=== PATIENT | male | born 1990 | race Hispanic/Latino ===

== ENCOUNTER 2021-02-25 09:50 | Emergency (ER) | payer SELFPAY ==
--- OUTSIDE RECORDS SUMMARY | 2021-02-25 09:52 | XMS REPORT | Continuity of Care Document ---
:1990 Author Organization [facility] t Address [address] [place] [address] Care Team Providers Name Role Phone Unavailable Unavailable Unavailable Payers Payer Name Policy Type Policy Number Effective Date Expiration Date S ource Problems This patient has no known problems. Allergies, Adverse Reactions, Alerts Allergy Allergy Status Severity Reaction(s) Onset Inactive Treating Comm ents Source Name Type Date Date Clinician No Known DA Active U 2019-0 [facility] 4[facility]14 [facility] No Known DA Active U 2016-0 [facility] 6[facility] Medications This patient has no known medications. Procedures This patient has no known procedures. Results Test Description Test Time Test Comments Results Result [facility] e Comments - XR RIBS UNI 2 V 2020-01-02 FAX: LT 09:59:00 Dimitris Gallo [place]: [facility] St: DEP Name: HORACIO LOVE JR [place] : 1990 Age/S: 29/M [address] [address] Unit #: [id number] [place]: [place] [address] Phys: Dimitris Gallo MD Acct: [id number] Dis Date: Status: DEP ER PHONE #: [phone] Exam Date: 12/19/2019 1530 FAX #: Reason: left rib pain EXAMS: CPT CODE: [id number] XR RIBS UNI 2 [place] [address] Location of dictation: B2 Chest 2 views and left RIBS 3 views. HISTORY:left rib pain COMMENT: No comparison. The lungs are clear and normally expanded. The heart and pulmonary vasculature is normal. Soft tissues and skeletal structures are unremarkable. The left ribs are intact with no acute fracture or dislocation, focal lesion or destructive process. No paraspinal widening noted. IMPRESSION: 1. No active disease the chest. 2. Unremarkable left ribs. at 0959 Reported and signed by: HARLEY MATRIN M.D. CC: Dimitris Gallo MD Technologist: Evelia Foster (R) Trnscrd Date/Time/By: 01/02/2020 (0959) : By: HieuPXC Orig Print D/T: S: 01/02/2020 (1002) PAGE 1 Signed Report - XR CHEST 2 V 2019-12-19 FAX: 15:35:00 Dimitris Gallo [place]: [facility] St: REG Name: HORACIO LOVE [facility] : 1990 Age/S: 29/M [address] [address] Unit #: [id number] Loc: [place] [address] Phys: Dimitris Gallo MD Acct: [id number] Dis Date: Status: REG ER PHONE #: [phone] Exam Date: 12/19/2019 1530 FAX #: Reason: left rib pain EXAMS: CPT CODE: [id number] XR CHEST 2 V 03054 Location of dictation: B2 Chest 2 views and left RIBS 3 views. HISTORY:left rib pain COMMENT: No comparison. The lungs are clear and normally expanded. The heart and pulmonary vasculature is normal. Soft tissues and skeletal structures are unremarkable. The left ribs are intact with no acute fracture or dislocation, focal lesion or destructive process. No paraspinal widening noted. IMPRESSION: 1. No active disease the chest. 2. Unremarkable left ribs. at 1535 Reported and signed by: HARLEY MARTIN M.D. CC: Dimitris Gallo MD Technologist: Evelia Foster (R) Trnscrd Date/Time/By: 12/19/2019 (1530) : By: SharriC Orig Print D/T: S: 12/19/2019 (1472) PAGE 1 Signed Report
[2021-02-25 10:15] LABS: Absolute Lymphocytes (CBC) 1.3 K/uL (0.7-4.9); Basophils % 0.3 % (0-1.3); Hematocrit 42.4 % (39.6-49.0); Lymphocytes % 18.4 % (15.3-44.8); MPV 10.1 fL (7.6-11.3); RBC Red Blood Cell Count 4.72 M/uL (4.33-5.43)
[2021-02-25 10:26] LABS: Protime INR 1.1
--- NOTE | 2021-02-25 10:26 | RAD REPORT ---
EXAM DESCRIPTION: CT - Head Brain Wo Cont - 02/25/2021 10:13 am CLINICAL HISTORY: Syncope COMPARISON: None. TECHNIQUE: Computed axial tomography of the head was obtained. IV contrast was not requested. All CT scans are performed using dose optimization technique as appropriate and may include automated exposure control or mA/KV adjustment according to patient size. FINDINGS: An intracranial bleed is not seen . The ventricles are normal in caliber. No extra-axial fluid collection is noted. Fluid within the sinuses/ mastoids is not seen. IMPRESSION: No acute intracranial abnormality is seen. If patient's symptoms persist MRI of the bra in would be recommended.
[2021-02-25 10:34] LABS: ALT/SGPT 24 U/L (12-78); AST/SGOT 14 U/L (15-37); Albumin 3.7 g/dL (3.4-5.0); Alkaline Phosphatase 104 U/L (45-117); BUN Blood Urea Nitrogen 14 mg/dL (7-18); Bicarbonate 28 mmol/L (21-32); Bilirubin Direct 0.2 mg/dL (0-0.2); Bilirubin Total 0.7 mg/dL (0.2-1.0); Glucose Level 95 mg/dL (74-106); Magnesium 2.1 mg/dL (1.8-2.4); NT PRO-BNP 16 pg/mL (<125); Potassium 3.7 mmol/L (3.5-5.1); Protein, Total 6.7 g/dL (6.4-8.2); Sodium Level 140 mmol/L (136-145); Troponin (Emerg Dept Use Only) < 0.02 ng/mL (0.0-0.045)
[2021-02-25] MEDS ORDERED: Ringers Lactate 1,000 ML IV ONE (10:34)
--- NOTE | 2021-02-25 10:41 | RAD REPORT ---
EXAM DESCRIPTION: Immanuel Single View02/25/2021 10:23 am CLINICAL HISTORY: Syncope COMPARISON: none FINDINGS: The lungs appear clear of acute infiltrate. The heart is normal size IMPRESSION: No acute abnormalities displayed
--- NOTE | 2021-02-25 12:07 | ER ---
Nurse's Notes [facility] Name: Oscar Melton Jr Age: 30 yrs Sex: Male : 1990 Arrival Date: 02/25/2021 Time: 09:57 Bed 19 [facility] MD: Diagnosis: Syncope and collapse Presentation: 02/25 09:58 Chief complaint: Patient states: Pt stated, "I came in from outside at work and then I kg sat down and passed out and hit my head on the door.". Coronavirus screen: Client denies travel out of the [place] in the last 14 days. At this time, unable to obtain information related to travel outside the [place] At this time, the client does not indicate any symptoms associated with coronavirus-19. Ebola Screen: Patient negative for fever greater than or equal to 101.5 degrees Fahrenheit, and additional compatible Ebola Virus Disease symptoms Patient denies exposure to infectious person. Patient denies travel to an Ebola-affected area in the 21 days before illness onset. Initial Sepsis Screen: Does the patient meet any 2 criteria? No. Patient's initial sepsis screen is negative. Does the patient have a suspected source of infection? No. Patient's initial sepsis screen is negative. Risk Assessment: Do you want to hurt yourself or someone else? Patient reports no desire to harm self or others. Onset of symptoms was February 25, 2021 at 09:00. 09:58 Method Of Arrival: EMS: [facility] kg 09:58 Acuity: JUSTINA 3 kg Historical: - Allergies: 10:01 No Known Allergies; kg - PMHx: 10:01 None; kg - PSHx: 10:01 None; kg - Immunization history:: Adult Immunizations not up to date. - Social history:: Smoking status: Patient denies any tobacco usage or history of. Screenin:04 Abuse screen: Denies threats or abuse. Denies injuries from another. Nutritional kg screening: No deficits noted. Tuberculosis screening: No symptoms or risk factors identified. Fall Risk None identified. Fall in past 12 months (25 points). No secondary diagnosis (0 pts). IV access (20 points). Ambulatory Aid- None/Bed Rest/Nurse Assist (0 pts). Gait- Normal/Bed Rest/Wheelchair (0 pts) Mental Status- Oriented to own ability (0 pts). Total Jaquez Fall Scale indicates No Risk (0-24 pts). Assessment: 10:01 General: Appears in no apparent distress. Behavior is calm, cooperative, appropriate kg for age, quiet. Pain: Denies pain. Neuro: Level of Consciousness is awake, alert, obeys commands, Oriented to person, place, time, situation, Appropriate for age Reports Numbness on the tounge. Cardiovascular: No deficits noted. Heart tones S1 S2 Capillary refill < 3 seconds Pulses are 4+ in right radial artery and left radial artery Rhythm is regular. Respiratory: No deficits noted. Airway is patent Respiratory effort is even, unlabored, relaxed, Respiratory pattern is regular, symmetrical, Breath sounds are clear bilaterally. GI: Reports vomiting, Pt stated, " I stopped to get gas this morning at 05:45 and got nauseated and threw up.". : No deficits noted. EENT: No deficits noted. Derm: No deficits noted. Vital Signs: 09:58 BP 118 / 71; Pulse 65; Resp 20; Temp 97.5(TE); Pulse Ox 100% on R/A; kg 09:58 Weight 90.72 kg (R); Height 5 ft. 7 in. (170.18 cm); Pain 0/10; kg 10:17 BP 109 / 66 Supine; Pulse 59; Resp 16; Pulse Ox 100% on R/A; mh5 10:19 BP 119 / 76 Sitting; Pulse 59; Resp 12; Pulse Ox 100% on R/A; mh5 10:21 BP 117 / 77 Standing; Pulse 59; Resp 17; Pulse Ox 97% on R/A; mh5 10:30 BP 107 / 70; Pulse 60; Resp 20; Pulse Ox 100% on R/A; kg 11:00 BP 115 / 77; Pulse 54; Resp 20; Pulse Ox 99% ; kg 11:30 BP 114 / 78; Pulse 49; Resp 20; Pulse Ox 99% on R/A; kg 12:00 BP 116 / 60; Pulse 53; Resp 20; Pulse Ox 100% on R/A; kg 09:58 Body Mass Index 31.32 (90.72 kg, 170.18 cm) kg ED Course: 09:57 Patient arrived in ED. jr8 09:57 Berna Cortez, RN is Primary Nurse. kg 09:57 Hayder Leal PA is PHCP. jr8 09:57 Murray Barajas MD is Attending Physician. jr8 10:00 Triage completed. kg 10:04 Maintain EMS IV. Dressing intact. Good blood return noted. Site clean \\T\\ dry. Gauge \\T\\ kg site: 20 G double lumen IV to right AC. 10:07 Arm band placed on left wrist. kg 10:07 Patient has correct armband on for positive identification. Placed in gown. Bed in low kg position. Call light in reach. Side rails up X2. 10:10 CBC with Diff Sent. mh5 10:10 LFT's Sent. 5 10:10 Magnesium Sent. 5 10:10 NT PRO-BNP Sent. 5 10:10 PT-INR Sent. 5 10:10 Troponin (emerg Dept Use Only) Sent. 5 10:11 Basic Metabolic Panel Sent. 5 10:23 XRAY Chest (1 view) Sent. kg 10:23 CT Head Brain wo Cont Sent. kg 12:05 Riley Vaughan MD is Referral Physician. jr8 12:06 Eran Felix MD is Referral Physician. jr8 12:12 IV discontinued, intact, bleeding controlled, No redness/swelling at site. Pressure kg dressing applied. 12:21 No provider procedures requiring assistance completed. kg Administered Medications: 10:23 Drug: Ringers - Lactated Ringers Solution 1000 ml Route: IV; Rate: bolus; Site: right kg antecubital; 11:34 Follow up: IV Status: Completed infusion; IV Intake: 1000ml kg 11:34 Follow up: Response: No adverse reaction kg Intake: 11:34 IV: 1000ml; Total: 1000ml. kg Outcome: 12:06 Discharge ordered by . jr8 12:21 Discharged to home ambulatory. kg 12:21 Condition: good 12:21 Discharge instructions given to patient, Instructed on discharge instructions, follow up and referral plans. Demonstrated understanding of instructions, follow-up care. 12:22 Patient left the ED. kg Signatures: Hayder Leal PA PA jr8 Cayla Love [facility] Berna Cortez, RN RN kg
--- NOTE | 2021-02-25 12:07 | EDPHYS ---
Physician Documentation [facility] Name: Oscar Melton Jr Age: 30 yrs Sex: Male : 1990 Arrival Date: 02/25/2021 Time: 09:57 Bed 19 Private MD: ED Physician Murray Barajas HPI: 02/25 10:01 This 30 yrs old Male presents to ER via EMS with complaints of Syncope. jr8 10:01 The patient has experienced syncope, became unresponsive. Onset: The symptoms/episode jr8 began/occurred acutely, today. Duration: This was a single episode. Context: the episode(s) was witnessed, by co-worker(s), occurred at work, occurred while the patient was sitting, Just prior to the episode the patient experienced lightheadedness. Associated injury: The patient did not suffer any apparent associated injury. Associated signs and symptoms: Pertinent positives: tingling. Current symptoms: tingling to tongue. The patient has not experienced similar symptoms in the past. The patient has not recently seen a physician. Patient stated that he was sitting in class today and started to feel lightheaded and have tingling sensation to entire tongue. Shortly after passed out. EMS called at that time. Patient A\T\O x4 upon arrival and feels back to normal other then having some slight tingling to tongue still. Stated that he has been doing more pre-work out drinks when he goes to the gym but feels that he is taking adequate water intake and denies any other supplements or recreational drug use. Denies having similar symptoms in past . Historical: - Allergies: 10:01 No Known Allergies; kg - PMHx: 10:01 None; kg - PSHx: 10:01 None; kg - Immunization history:: Adult Immunizations not up to date. - Social history:: Smoking status: Patient denies any tobacco usage or history of. ROS: 10:01 Eyes: Negative for injury, pain, redness, and discharge, ENT: Negative for injury, jr8 pain, and discharge, Neck: Negative for injury, pain, and swelling, Cardiovascular: Negative for chest pain, palpitations, and edema, Respiratory: Negative for shortness of breath, cough, wheezing, and pleuritic chest pain, Abdomen/GI: Negative for abdominal pain, nausea, vomiting, diarrhea, and constipation, Back: Negative for injury and pain, MS/Extremity: Negative for injury and deformity, Skin: Negative for injury, rash, and discoloration. 10:01 Neuro: Positive for dizziness, syncope, tingling. Exam: 10:01 Constitutional: This is a well developed, well nourished patient who is awake, alert, jr8 and in no acute distress. Head/Face: Normocephalic, atraumatic. Eyes: Pupils equal round and reactive to light, extra-ocular motions intact. Lids and lashes normal. Conjunctiva and sclera are non-icteric and not injected. Cornea within normal limits. Periorbital areas with no swelling, redness, or edema. ENT: Nares patent. No nasal discharge, no septal abnormalities noted. Tympanic membranes are normal and external auditory canals are clear. Oropharynx with no redness, swelling, or masses, exudates, or evidence of obstruction, uvula midline. Mucous membranes moist. Neck: Trachea midline, no thyromegaly or masses palpated, and no cervical lymphadenopathy. Supple, full range of motion without nuchal rigidity, or vertebral point tenderness. No Meningismus. Cardiovascular: Regular rate and rhythm with a normal S1 and S2. No gallops, murmurs, or rubs. Normal PMI, no JVD. No pulse deficits. Respiratory: Lungs have equal breath sounds bilaterally, clear to auscultation and percussion. No rales, rhonchi or wheezes noted. No increased work of breathing, no retractions or nasal flaring. Abdomen/GI: Soft, non-tender, with normal bowel sounds. No distension or tympany. No guarding or rebound. No evidence of tenderness throughout. Back: No spinal tenderness. No costovertebral tenderness. Full range of motion. Skin: Warm, dry with normal turgor. Normal color with no rashes, no lesions, and no evidence of cellulitis. MS/ Extremity: Pulses equal, no cyanosis. Neurovascular intact. Full, normal range of motion. Neuro: Awake and alert, GCS 15, oriented to person, place, time, and situation. Cranial nerves II-XII grossly intact. Motor strength 5/5 in all extremities. Sensory grossly intact. Cerebellar exam normal. Normal gait. Vital Signs: 09:58 BP 118 / 71; Pulse 65; Resp 20; Temp 97.5(TE); Pulse Ox 100% on R/A; kg 09:58 Weight 90.72 kg (R); Height 5 ft. 7 in. (170.18 cm); Pain 0/10; kg 10:17 BP 109 / 66 Supine; Pulse 59; Resp 16; Pulse Ox 100% on R/A; mh5 10:19 BP 119 / 76 Sitting; Pulse 59; Resp 12; Pulse Ox 100% on R/A; mh5 10:21 BP 117 / 77 Standing; Pulse 59; Resp 17; Pulse Ox 97% on R/A; mh5 10:30 BP 107 / 70; Pulse 60; Resp 20; Pulse Ox 100% on R/A; kg 11:00 BP 115 / 77; Pulse 54; Resp 20; Pulse Ox 99% ; kg 11:30 BP 114 / 78; Pulse 49; Resp 20; Pulse Ox 99% on R/A; kg 12:00 BP 116 / 60; Pulse 53; Resp 20; Pulse Ox 100% on R/A; kg 09:58 Body Mass Index 31.32 (90.72 kg, 170.18 cm) kg MDM: 09:57 Patient medically screened. [facility] 12:05 Differential Diagnosis: cardiac arrhythmia, drug effect, emotional response, idiopathic jr8 syncope, pseudo seizure, seizure, vasovagal episode. Data reviewed: vital signs, nurses notes, lab test result(s), EKG, radiologic studies, CT scan, plain films. Data interpreted: Pulse oximetry: on room air is 99 %. Interpretation: normal. Counseling: I had a detailed discussion with the patient and/or guardian regarding: the historical points, exam findings, and any diagnostic results supporting the discharge/admit diagnosis, lab results, radiology results, the need for outpatient follow up, a railroad switchman, a neurologist. 02/25 09:59 Order name: Basic Metabolic Panel 02/25 09:59 Order name: CBC with Diff 02/25 09:59 Order name: LFT's 02/25 09:59 Order name: Magnesium [facility] 02/25 09:59 Order name: NT PRO-BNP [facility] 02/25 09:59 Order name: PT-INR [facility] 02/25 09:59 Order name: Troponin (emerg Dept Use Only) [facility] 02/25 10:29 Order name: CBC with Automated Diff; Complete Time: 11:06 EDMS 02/25 10:34 Order name: Basic Metabolic Panel; Complete Time: 11:06 EDMS 02/25 10:34 Order name: Liver (Hepatic) Function; Complete Time: 11:06 EDMS 02/25 10:34 Order name: Troponin (Emerg Dept Use Only); Complete Time: 11:06 EDMS 02/25 10:34 Order name: NT PRO-BNP; Complete Time: 11:06 EDMS 02/25 10:34 Order name: Magnesium; Complete Time: 11:06 EDMS 02/25 10:35 Order name: Protime (+INR); Complete Time: 11:06 EDMS 02/25 09:59 Order name: XRAY Chest (1 view) 02/25 09:59 Order name: EKG; Complete Time: 10:00 02/25 09:59 Order name: Cardiac monitoring; Complete Time: 10:10 02/25 09:59 Order name: EKG - Nurse/Tech; Complete Time: 10:10 02/25 09:59 Order name: IV Saline Lock; Complete Time: 10:10 02/25 09:59 Order name: Labs collected and sent; Complete Time: 10:10 02/25 09:59 Order name: O2 Per Protocol; Complete Time: 10:11 02/25 09:59 Order name: O2 Sat Monitoring; Complete Time: 10:11 02/25 09:59 Order name: CT Head Brain wo Cont 02/25 09:59 Order name: Orthostatics; Complete Time: 10:23 [facility] 02/25 10:26 Order name: CT; Complete Time: 11:06 EDMT 02/25 10:41 Order name: RAD; Complete Time: 11:06 EDMS Administered Medications: 10:23 Drug: Ringers - Lactated Ringers Solution 1000 ml Route: IV; Rate: bolus; Site: right kg antecubital; 11:34 Follow up: IV Status: Completed infusion; IV Intake: 1000ml kg 11:34 Follow up: Response: No adverse reaction kg Disposition: 15:24 Co-signature as Attending Physician, Murray Barajas MD I agree with the assessment and kdr plan of care. Disposition: 02/25/21 12:06 Discharged to Home. Impression: Syncope and collapse. - Condition is Stable. - Discharge Instructions: Syncope. - Medication Reconciliation Form, Thank You Letter, Antibiotic Education, Prescription Opioid Use, Work release form form. - Follow up: Riley Vaughan MD; When: 2 - 3 days; Reason: Recheck today's complaints, Continuance of care, Re-evaluation by your physician. Follow up: Eran Felix MD; When: 2 - 3 days; Reason: Recheck today's complaints, Continuance of care, Re-evaluation by your physician. - Problem is new. - Symptoms are resolved. Signatures: Dispatcher [employer] EDMS Murray Barajas MD MD kdr Hayder Leal PA PA jr8 Berna Cortez RN RN kg Corrections: (The following items were deleted from the chart) 12:22 12:06 02/25/2021 12:06 Discharged to Home. Impression: Syncope and collapse. Condition kg is Stable. Forms are Medication Reconciliation Form, Thank You Letter, Antibiotic Education, Prescription Opioid Use. Follow up: Riley Vaughan; When: 2 - 3 days; Reason: Recheck today's complaints, Continuance of care, Re-evaluation by your physician. Follow up: Eran Felix; When: 2 - 3 days; Reason: Recheck today's complaints, Continuance of care, Re-evaluation by your physician. Problem is new. Symptoms are resolved. jr8
[2021-02-25 12:27] VITALS: TEMP 97.5
[2021-02-25 12:38] VITALS: BP 116/60; O2SAT 100
--- NOTE | 2021-02-26 16:32 | EKG ---
Test Date: 2021-02-25 Test Time: 10:03:05 Tree Scout: BRIANNA MEASUREMENT RESULTS: Intervals: Rate: 64 MT: 134 QRSD: 98 QT: 396 QTc: 408 [place]: P: 41 MT: 134 QRS: 20 T: 26 INTERPRETIVE STATEMENTS: Normal sinus rhythm with sinus arrhythmia Normal ECG No previous ECG available for comparison Electronically Signed On 02-26-21 16:29:55 CDT by Eran Felix
== END 2021-02-25 12:22 | disposition home or self-care (01) ==
LOC: ER 09:50
DX: R55 Syncope and collapse (principal)
CPT/HCPCS: 36415; 70450; 71045; 80048; 80076; 83735; 83880; 84484; 85025; 85610; 93005; 96365; 99284; J7120

== ENCOUNTER 2021-08-13 11:38 | Emergency (ER) | payer SELFPAY ==
--- OUTSIDE RECORDS SUMMARY | 2021-08-13 11:41 | XMS REPORT | Continuity of Care Document ---
:1990 Author Organization [facility] t Address [address] [place] [address] Care Team Providers Name Role Phone Physician, Primary or Family Admitting Clinician Unavailabl e Payers Payer Name Policy Type Policy Number Effective Date Expiration Date S ource Problems This patient has no known problems. Allergies, Adverse Reactions, Alerts Allergy Allergy Status Severity Reaction(s) Onset Inactive Treating Comm ents Source Name Type Date Date Clinician No Known DA Active U 2020-0 [facility] No Known DA Active U 2020-0 [facility] No Known DA Active U 2017-0 [facility] 6-23 [facility] No Known DA Active U 2017-0 [facility] 6[facility] Medications This patient has no known medications. Procedures This patient has no known procedures. Encounters Start End Encounter Admission Attending Care Care Encounter Source Date/Time Date/Time Type Type Clinicians Facility Department ID 2019-12-19 Inpatient [facility] [id number] [facility] 14:52:00 [id number] [facility] Results Test Description Test Time Test Comments Results Result [facility] e Comments - XR RIBS UNI 2 V 2020-01-02 FAX: LT 09:59:00 Dimitris Gallo [place]: [facility] St: DEP Name: HORACIO LOVE JR : 1990 Age/S: 29/M [address] [address] Unit #: [id number] Loc: [place] [address] Phys: Dimitris Gallo MD Acct: [id number] Dis Date: Status: DEP ER PHONE #: [phone] Exam Date: 12/19/2019 1530 FAX #: Reason: left rib pain EXAMS: CPT CODE: [id number] XR RIBS UNI 2 [place] [address] Location of dictation: B2 Chest 2 views [...] at 0959 Reported and signed by: HARLEY MARTIN M.D. CC: Dimitris Gallo MD Technologist: Evelia Foster (R) Trnksrd Date/Time/By: 01/02/2020 (0959) : By: HieuPXC Orig Print D/T: S: 01/02/2020 (1002) PAGE 1 Signed Report - XR CHEST 2 V 2019-12-19 FAX: 15:35:00 Dimitris Gallo [place]: [facility] St: REG Name: HORACIO LOVE JR [place] : 1990 Age/S: 29/M [address] [facility] [address] Unit #: [id number] Loc: [place] [address] Phys: Dimitris Gallo MD Acct: [id number] Dis Date: Status: REG ER PHONE #: [phone] Exam Date: 12/19/2019 1530 FAX #: Reason: left rib pain EXAMS: CPT CODE: [id number] XR CHEST 2 V 13372 Location of dictation: B2 Chest 2 views [...] MARTIN M.D. CC: Dimitris Gallo MD Technologist: Evleia Foster (R) Trnscrd Date/Time/By: 12/19/2019 (1535) : By: HieuPXC Orig Print D/T: S: 12/19/2019 (4342) PAGE 1 Signed Report
--- NOTE | 2021-08-13 12:36 | RAD REPORT ---
EXAM DESCRIPTION: CT - Head Brain Wo Cont - 08/13/2021 12:12 pm CLINICAL HISTORY: HEADACHE COMPARISON: Head Brain Wo Cont dated 02/25/2021 TECHNIQUE: All CT scans are performed using dose optimization technique as appropriate and may inclu de automated exposure control or mA/KV adjustment according to patient size. FINDINGS: No intracranial hemorrhage, hydrocephalus or extra-axial fluid collection.No areas of brai n edema or evidence of midline shift. Trace thickening in in the right maxillary sinus. The calvarium is intact. IMPRESSION: No acute intracranial abnormality.
[2021-08-13 13:28] LABS: Blood Gas Oxyhemoglobin 95.7 % (94-97); Blood O2 Saturation 97.7 % (92-98.5)
--- NOTE | 2021-08-13 14:19 | ER ---
Nurse's Notes [facility] Name: Oscar Melton Jr Age: 30 yrs Sex: Male : 1990 Arrival Date: 08/13/2021 Time: 11:42 Bed DIS3 Private MD: Diagnosis: Headache Presentation: 08/13 11:45 Chief complaint: Patient states: Wednesday at work and I was exposed to Nitrogen. My [facility] helmet was leaking. 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 This all happened in [place], and my company kept telling me they would get me in with a doctor but they just had me in a hotel so I came home and am coming here. I keep having bad headaches. Coronavirus screen: Vaccine status: Patient reports being unvaccinated. Client denies travel out of the [place] in the last 14 days. Ebola Screen: Patient negative for fever greater than or equal to 101.5 degrees Fahrenheit, and additional compatible Ebola Virus Disease symptoms Patient denies exposure to infectious person. Patient denies travel to an Ebola-affected area in the 21 days before illness onset. Initial Sepsis Screen: Does the patient meet any 2 criteria? No. Patient's initial sepsis screen is negative. Does the patient have a suspected source of infection? No. Patient's initial sepsis screen is negative. Risk Assessment: Do you want to hurt yourself or someone else? Patient reports no desire to harm self or others. Onset of symptoms was August 09, 2021. 11:45 Method Of Arrival: Ambulatory [facility] 11:45 Acuity: JUSTINA 3 [facility] Triage Assessment: 11:52 General: Appears in no apparent distress. well groomed, well developed, well nourished, [facility] Behavior is calm, cooperative, appropriate for age. 11:52 Pain: Complains of pain in head. [facility] Historical: - Allergies: 11:52 No Known Allergies; [facility] - Home Meds: 11:52 None [Active]; [facility] - PMHx: 11:52 None; [facility] - Immunization history:: Adult Immunizations up to date. - Social history:: Smoking status: Patient denies any tobacco usage or history of. Patient uses alcohol, occasionally. Screenin:13 Abuse screen: Denies threats or abuse. Denies injuries from another. Nutritional iw screening: No deficits noted. Tuberculosis screening: No symptoms or risk factors identified. Fall Risk None identified. Assessment: 12:13 Reassessment: Contacted Poison Control, recommend to draw an ABG, serum lactate, obtain iw EKG and administer O2 therapy as needed , . 13:07 General: Appears in no apparent distress. Behavior is calm, cooperative. Neuro: Level iw of Consciousness is awake, alert, obeys commands, Oriented to person, place, time, situation, Moves all extremities. Full function. Respiratory: Respiratory effort is even, unlabored, Respiratory pattern is regular, symmetrical. Derm: Skin is intact, is healthy with good turgor. Musculoskeletal: Range of motion: intact in all extremities. Vital Signs: 11:45 BP 150 / 78; Pulse 64; Resp 16; Temp 98.2; Pulse Ox 100% ; Weight 94.8 kg; Height 5 ft. 5 7 in. (170.18 cm); 13:00 BP 127 / 70; Pulse 62; Temp 98.9; Pulse Ox 100% ; tp1 11:45 Body Mass Index 32.73 (94.80 kg, 170.18 cm) [facility] ED Course: 11:42 Patient arrived in ED. [facility] 11:51 Triage completed. [facility] 12:12 CT Head Brain wo Cont In Process Unspecified. EDMS 12:56 Daisy Mtz FNP-C is [facility]. kb 12:56 Deyanira Gibbons MD is Attending Physician. kb 13:07 Jennifer Hi, YING is Primary Nurse. iw 13:21 Inserted saline lock: 20 gauge in right antecubital area, using aseptic technique. tp1 Blood collected. 13:22 Lactate Sent. tp1 14:24 No provider procedures requiring assistance completed. IV discontinued, intact, ld1 bleeding controlled, No redness/swelling at site. 14:24 Arm band placed on right wrist. ld1 14:24 Patient has correct armband on for positive identification. ld1 Administered Medications: No medications were administered Outcome: 14:18 Discharge ordered by . kb 14:24 Discharged to home ambulatory. ld1 14:24 Condition: stable 14:24 Discharge instructions given to patient, Instructed on discharge instructions, follow up and referral plans. Demonstrated understanding of instructions, follow-up care. 14:24 Patient left the ED. ld1 Signatures: Dispatcher [employer] Daisy Alamo, HEMANTH JACKSON-Jennifer Marinelli, RN RN iw Lauren Lynn RN RN ld1 Matilda Slater RN RN jh5 Laverne Gonzalez 5 Lakisha Munoz tp1 Corrections: (The following items were deleted from the chart) 11:53 11:52 Pain: Denies pain. [place] [id number] 12:15 12:13 Reassessment: Contacted Poison Control, recommend to draw an ABG, serum lactate, iw obtain EKG and administer O2 therapy as needed iw
--- NOTE | 2021-08-13 14:19 | EDPHYS ---
Physician Documentation [facility] Name: Oscar Melton Jr Age: 30 yrs Sex: Male : 1990 Arrival Date: 08/13/2021 Time: 11:42 Bed DIS3 Private MD: ED Physician Deyanira Gibbons HPI: 08/13 14:19 This 30 yrs old Male presents to ER via Ambulatory with complaints of Chemical kb Exposure. 14:19 The patient complains of pain to the forehead. The patient describes the headache as kb intermittent, throbbing. Onset: The symptoms/episode began/occurred 5 day(s) ago. Associated signs and symptoms: The patient has no apparent associated signs or symptoms. Severity of symptoms: At its worst the pain was mild, moderate, in the emergency department the pain is unchanged. Headache History: Denies prior headaches. The symptoms are alleviated by nothing. the symptoms are aggravated by nothing. The patient has not experienced similar symptoms in the past. The patient has not recently seen a physician. Pt states he was had a chemical exposure on Wednesday morning around 0200 that caused him to have a syncopal episode. States he was seen by work , but continues to have headaches. Historical: - Allergies: 11:52 No Known Allergies; [facility] - Home Meds: 11:52 None [Active]; [facility] - PMHx: 11:52 None; [facility] - Immunization history:: Adult Immunizations up to date. - Social history:: Smoking status: Patient denies any tobacco usage or history of. Patient uses alcohol, occasionally. ROS: 13:11 Constitutional: Negative for fever, chills, and weight loss. kb 13:11 Neuro: Positive for headache. 13:11 All other systems are negative. Exam: 14:22 Constitutional: This is a well developed, well nourished patient who is awake, alert, kb and in no acute distress. Head/Face: Normocephalic, atraumatic. ENT: Moist Mucous membranes Respiratory: Respirations even and unlabored. No increased work of breathing. Talking in full sentences Skin: Warm, dry with normal turgor. Normal color. MS/ Extremity: Pulses equal, no cyanosis. Neurovascular intact. Full, normal range of motion. Neuro: Awake and alert, GCS 15, oriented to person, place, time, and situation. Moves all extremities. Normal gait. Psych: Awake, alert, with orientation to person, place and time. Behavior, mood, and affect are within normal limits. 15:56 ECG was reviewed by the Attending Physician. kb Vital Signs: 11:45 BP 150 / 78; Pulse 64; Resp 16; Temp 98.2; Pulse Ox 100% ; Weight 94.8 kg; Height 5 ft. jh5 7 in. (170.18 cm); 13:00 BP 127 / 70; Pulse 62; Temp 98.9; Pulse Ox 100% ; tp1 11:45 Body Mass Index 32.73 (94.80 kg, 170.18 cm) jh5 MDM: 12:56 Patient medically screened. kb 13:11 Data reviewed: vital signs, nurses notes. Data interpreted: Pulse oximetry: on room air kb is 100 %. Interpretation: normal. 14:11 Counseling: I had a detailed discussion with the patient and/or guardian regarding: the kb historical points, exam findings, and any diagnostic results supporting the discharge/admit diagnosis, lab results, radiology results, the need for outpatient follow up, a family practitioner, to return to the emergency department if symptoms worsen or persist or if there are any questions or concerns that arise at home. 08/13 12:57 Order name: Lactate; Complete Time: 14:11 kb 08/13 12:57 Order name: ABG; Complete Time: 13:33 kb 08/13 11:55 Order name: CT Head Brain wo Cont; Complete Time: 12:56 kb 08/13 12:57 Order name: EKG; Complete Time: 12:57 kb 08/13 12:57 Order name: EKG - Nurse/Tech; Complete Time: 13:21 kb EC:56 Rate is 62 beats/min. Rhythm is regular. QRS [place] is Normal. NV interval is normal at kb 148 msec. QRS interval is normal at 106 msec. QT interval is normal at 384 msec. Administered Medications: No medications were administered Disposition: 22:31 Co-signature as Attending Physician, Deyanira Gibbons MD I agree with the assessment and sp3 plan of care. Disposition Summary: 08/13/21 14:18 Discharge Ordered Location: Home kb Condition: Stable kb Diagnosis - Headache kb Followup: kb - With: Emergency Department - When: As needed - Reason: Worsening of condition Followup: kb - With: Private Physician - When: 2 - 3 days - Reason: Recheck today's complaints, Continuance of care, Re-evaluation by your physician Discharge Instructions: - Discharge Summary Sheet kb - General Headache Without Cause, [id number] kb Forms: - Medication Reconciliation Form kb - Thank You Letter kb - Antibiotic Education kb - Prescription Opioid Use kb Signatures: Dispatcher [employer] EDDaisy Young, NELLC RENETTA-Deyanira Mccall MD MD sp3 Matilda Slater RN RN jh5
[2021-08-13 14:50] VITALS: O2SAT 100
[2021-08-13 14:51] VITALS: BP 127/70; TEMP 98.9
== END 2021-08-13 14:24 | disposition home or self-care (01) ==
LOC: ER 11:38
DX: R51.9 Headache, unspecified (principal)
CPT/HCPCS: 36415; 70450; 82805; 83605; 93005; 99283